=== PATIENT | female | born 1995 | race Caucasian/White ===

== ENCOUNTER 2018-08-10 12:35 | Inpatient (IN) | payer MEDICAID ==
[~2018-08-10] VITALS: Ht 157.5 cm; Wt 66.2 kg
[2018-08-10 13:51] VITALS: Ht 157.5 cm; Wt 66.2 kg
[2018-08-10 13:52] VITALS: BP 120/77; PULSE 77; RESP 18
[2018-08-10] MEDS ORDERED: METHYLERGONOVINE 0.2 MG INJ IM PRN (14:00)
[2018-08-10] MEDS ORDERED: BUTORPHANOL 2 MG INJ IV PRN (14:00)
[2018-08-10] MEDS ORDERED: OXYTOCIN 30 UNITS/LR 500 ML IV SCH ×2 (14:00→15:00)
[2018-08-10] MEDS ORDERED: OXYTOCIN 30 UNITS/LR 500 ML IV PRN (14:00)
[2018-08-10] MEDS ORDERED: CARBOPROST 250 MCG INJ IM PRN (14:00)
[2018-08-10] MEDS ORDERED: IBUPROFEN 600 MG TAB PO PRN (14:00)
[2018-08-10] MEDS ORDERED: LIDOCAINE 1% (MPF) 30 ML INJ INJ PRN (14:00)
[2018-08-10] MEDS ORDERED: MISOPROSTOL 200 MCG TAB PR PRN (14:00)
[2018-08-10] MEDS: LACTATED RINGER'S 1,000 ML IV SCH ×2 (14:13→15:37)
--- NOTE | 2018-08-10 22:11 | HP ---
Date/Time of Note Date/Time of Note DATE: 08/10/18 TIME: 22:05 OB - History Hx of Present Free Text/Dictation 22 years old 2 para was 0010 with single intrauterine at 39 weeks and 1 day with a VICKEY of 08/16/2018 complaining of uterine contractions. She states good movement. She denies nausea, vomiting, shortness of breath, chest pain, headache, visual changes, vaginal bleeding or LOF. Risk factors: 1. Elevated inhibin 2. Abnormal 1 hour GCT (137), she declined 3-hour GTT Chief Complaint: Uterine contractions Estimated Due Date: Aug 16, 2018 : 2 Para: 0 Spontaneous : 0 Therapeutic : 2 Care: Good Care Ultrasounds: Normal mid trimester US, Other Obstetrical Complications: None Medical Complications: None Past Family/Social History * Past Medical, Surgical, Family and Obstetric Histories reviewed from chart. Blood Type: O+ Rubella: immune RPR/VDRL: Negative GBS Status: Negative HBsAG: Negative OB Admission Exam Vital Signs Vital Signs Vital Signs Date Temp Pulse Resp B/P (MAP) Pulse Ox O2 O2 Flow FiO2 Time Delivery Rate 08/10/18 98.9 77 18 120/77 Room Air 13:52 (91) Physical Exam HEENT: WNL Heart: Rhythm Normal Lungs: Clear Abdomen: WNL Extremities: Normal Cervical Dilatation: 4cm Effacement: 75% Station: -2 Membranes: Intact Heart Rate: 140's Accelerations: Accelerations Present Decelerations: No Decelerations Varibility: Moderate Contractions on Admission: < 5 Minutes Apart Intensity: Moderate Last 72 hours Lab Results CBC & BMP 08/10/18 14:10 Hemoglobin A1C Test 08/10/18 14:10 Hemoglobin A1c 5.7 OB Assessment/Plan Other plan: 22 years old 2 para 00 2 0 with single intrauterine at 39 weeks and 1 day in labor - FHR: No sign of metabolic acidosis- Category I - Continuous EFM, toco - CBC, blood type and screen - Analgesia options with R/B/A discussed in detail with patient - Epidural per patient request - Please see the orders - O+/Rubella: Immune - GBS: Negative 2) 1 hour GCT was 137. She declined 3-hour GTT. Hemoglobin A1c is 5.7. Follow-up at 6-12 weeks after delivery Admission, procedures, expectations, risks and possible complications have been discussed in detail with the patient. Risk of vaginal delivery including but not limited to bleeding, infection, cervical laceration, placental retention, injury to fetus, blood transfusion, blood transfusion related infection, risk of anesthesia, adhesion, cervical laceration, episiotomy/laceration, possible delivery with risk of bleeding, infection, injury to other organs (bowel, bladder, ureter, vessels, nerves), injury to fetus, blood transfusion, blood transfusion related infection, risk of anesthesia, scar and hernia formation, needs for future , removal of uterus or any other indicated surgery discussed with the patient. She expressed understanding and repeats the risks. All of her questions were answered. She signed the informed consent. PHYSICIAN'S VERIFICATION OF INFORMED CONSENT The patient was counseled regarding the procedure, its indications, risks, potential complications and alternatives and any questions were answered. Consent was obtained. PLANNED PROCEDURE/TREATMENT: Vaginal delivery, episiotomy, repair of laceration possible delivery NIEVES NORMAN Aug 10, 2018 22:11
[2018-08-10] MEDS ORDERED: MINERAL OIL LIGHT 10 ML VIAL TOP PRN (23:00)
[2018-08-11] MEDS ORDERED: PREN-99 PO (01:18)
[2018-08-11] MEDS: LACTATED RINGER'S 1,000 ML IV SCH ×3 (01:19→10:25)
--- NOTE | 2018-08-11 01:56 | PREAC ---
Date/Time of Note Date/Time of Note DATE: 08/11/18 TIME: :55 Anesthesia Eval and Record Evaluation Time Pre-Procedure Interview DATE: 08/11/18 TIME: :55 Age 22 Sex female NPO: 8 hrs Preoperative diagnosis iup at term Planned procedure labor epidural Past Medical History Past Medical History: None Surgery & Anesthesia Issues No known issue Meds Anticoagulation: No Beta Shawn within 24 hr: No Reason Beta Shawn not given: Pt. not on B-Shawn Reported Medications Vit #76/Iron,Carb/FA (Pnv 29-1 Tablet) 1 Each Tablet, 1 EACH PO, TAB 08/11/18 Current Medications Lactated Ringer's 1,000 ml @ 125 mls/hr Q8H IV Last administered on 08/11/18at 01:19; Admin Dose 125 MLS/HR; Start 08/10/18 at 13:53 Butorphanol Tartrate (Stadol) 2 mg Q2H PRN IV .PAIN; Start 08/10/18 at 14:00 Lidocaine (Xylocaine 1% (Mpf)) 30 ml ONCE PRN INJ .EPISIOTOMY; Start 08/10/18 at 14:00 Oxytocin/Lactated Ringer's 500 ml @ 500 mls/hr ONCE POST IV ; Start 08/10/18 at 14:00 Oxytocin/Lactated Ringer's 500 ml @ 125 mls/hr POST IV ; Start 08/10/18 at 14:00 Ibuprofen (Motrin) 600 mg ONCE PRN PO .PAIN 1-5; Start 08/10/18 at 14:00 Oxytocin/Lactated Ringer's 500 ml @ 0 mls/hr ONCE PRN IV .VAGINAL BLEEDING; Start 08/10/18 at 14:00 Methylergonovine Maleate (Methergine) 0.2 mg ONCE PRN IM .VAGINAL BLEEDING; Start 08/10/18 at 14:00 Carboprost Tromethamine (Hemabate) 250 mcg ONCE PRN IM .VAGINAL BLEEDING; Start 08/10/18 at 14:00 Misoprostol (Cytotec) 1,000 mcg ONCE PRN MO .VAGINAL BLEEDING; Start 08/10/18 at 14:00 Oxytocin/Lactated Ringer's 500 ml @ 0 mls/hr Q0M IV Last administered on 08/10/18at 15:39; Admin Dose 1 MLS/HR; Start 08/10/18 at 15:00 Mineral Oil (Muri-Lube) PRN PRN TOP VAGINAL DELIVERY; Start 08/10/18 at 23:00 Meds reviewed: Yes Allergies Coded Allergies: No Known Allergy (Unverified , 08/11/18) Allergies Reviewed: Yes Labs/Studies Labs Reviewed: Reviewed by anesthesiologist Result Diagram: 08/10/18 1410 Laboratory Tests 08/10/18 14:10 Blood Bank Test 08/10/18 14:10 Antibody Screen NEGATIVE Blood Type O POSITIVE Rh Immune Globulin Candidate NO test: Positive Pre-procedure Exam Last vitals Vital Signs Date Temp Pulse Resp B/P (MAP) Pulse Ox O2 O2 Flow FiO2 Time Delivery Rate 08/10/18 98.9 77 18 120/77 Room Air 13:52 (91) Airway: Adequate mouth opening, Adequate thyromental dist Mallampati: Mallampati I Teeth: Normal Lung: Normal Heart: Normal ASA Physical Status ASA physical status: 2 Emergency: None Planned Anesthetic Neuraxial: Epidural Planned Pain Management Parenteral pain med Pre-operative Attestations Prior to commencing anesthesia and surgery, the patient was re-evaluated, there was verification of: *The patient's identity *The results of appropriate recent lab work and preoperative vital signs *The above evaluation not changing prior to induction *Anesthetic plan, risk benefits, alternative and complications discussed with patient/family; questions answered; patient/family understands, accepts and wishes to proceed. URBAN SWEENEY Aug 11, 2018 01:56
[2018-08-11] MEDS ORDERED: FENTAnyl 2MCG/ML-ROPIV 0.2% 100 ML ONE (01:57)
[2018-08-11] MEDS ORDERED: ONDANSETRON 4 MG INJ IV PRN ×2 (02:00→22:30)
[2018-08-11] MEDS ORDERED: DIPHENHYDRAMINE 50 MG INJ IV PRN ×2 (02:00→22:30)
[2018-08-11] MEDS ORDERED: NALOXONE (0.4 MG/ML) INJ IV PRN (02:00)
[2018-08-11] MEDS: FENTAnyl 2MCG/ML-ROPIV 0.2% 100 ML BAG EPI SCH ×2 (02:21→12:10)
--- NOTE | 2018-08-11 08:20 | PAC ---
Date/Time of Note Date/Time of Note DATE: 08/11/18 TIME: 08:20 Post-Anesthesia Notes Post-Anesthesia Note Last documented vital signs Vital Signs Date Temp Pulse Resp B/P (MAP) Pulse Ox O2 O2 Flow FiO2 Time Delivery Rate 08/10/18 98.9 77 18 120/77 Room Air 0820 (91) Activity: WNL Respiratory function: WNL Cardiovascular function: WNL Mental status: Baseline Pain reasonably controlled: Yes Hydration appropriate: Yes Nausea/Vomiting absent: Yes URBAN SWEENEY Aug 11, 2018 08:20
[2018-08-11] MEDS: OXYTOCIN 30 UNITS/LR 500 ML IV SCH ×2 (15:01→19:24)
--- NOTE | 2018-08-11 16:33 | LDN ---
Date/Time of Note Date/Time of Note DATE: 08/11/18 TIME: 16:30 Delivery Summary 22 years old 2 para was 0010 with single intrauterine at 39 weeks and 2 days delivered a viable male over 4 median episiotomy and left lateral vaginal laceration. Nose and mouth suctioned. Rest of body delivered. Placenta cord clamp and cut after stopping pulsation. Baby given to the nurse. Laceration repaired with 2-0 and 3-0 Vicryl. Patient tolerated procedure well Time of delivery 14:42 40 Weight 7 pounds 13 ounces Shamir 20 inches 8 at 1 minutes and 9 at 5 minutes EBL 300 ml Weeks of Gestation 39 weeks and 2 days Placenta Delivered: Spontaneously Meconium: none Episiotomy: Yes (Median) Indication for episiotomy Facilitate vaginal delivery Anesthesia type: Epidural Estimated blood loss: 300 Sponge & Needle done & correct: Yes All needle counts correct: Yes Any foreign bodies felt in the: No Infant Delivery Information Sex Infant Sex: male Apgars 1 Minute: 8 5 Minute: 9 10 Minute: 10 Suctioning Nose & mouth suctioned at paige: Yes Umbilical Cord Umbilical cord with: 3 Vessels Cord Blood was obtained: Yes Mother & Baby Disposition Disposition Mom & Baby to Maternity; Good: Yes NIEVES NORMAN Aug 11, 2018 16:33
[2018-08-11 22:15] VITALS: BP 111/71; PULSE 71; RESP 19
[2018-08-11] MEDS: DEXTROSE 5%-LR 1,000 ML IV SCH (22:27)
[2018-08-11] MEDS ORDERED: CARBOPROST 250 MCG INJ IM PRN (22:30)
[2018-08-11] MEDS ORDERED: ZOLPIDEM 5 MG TAB PO PRN (22:30)
[2018-08-11] MEDS ORDERED: OXYTOCIN 30 UNITS/LR 500 ML IV PRN (22:30)
[2018-08-11] MEDS ORDERED: DIBUCAINE 1% 30 GM OINT TOP PRN (22:30)
[2018-08-11] MEDS ORDERED: WITCH HAZEL/GLYCERIN PAD PR PRN (22:30)
[2018-08-11] MEDS ORDERED: METHYLERGONOVINE 0.2 MG INJ IM PRN (22:30)
[2018-08-11] MEDS ORDERED: MISOPROSTOL 200 MCG TAB PR PRN (22:30)
[2018-08-11] MEDS ORDERED: BENZOCAINE 20% 56 ML SPRAY TOP PRN (22:30)
[2018-08-11] MEDS ORDERED: ACETAMINOPHEN 325 MG TAB PO PRN (22:30)
[2018-08-11] MEDS: LACTATED RINGER'S 1,000 ML IV* SCH (23:38)
[2018-08-12] VITALS: BP 116/64; PULSE 73; RESP 20
[2018-08-12] MEDS: LANOLIN HPA 1 PKT TOP PRN (00:24)
[2018-08-12] MEDS ORDERED: HYDROCODONE/APAP (5/325) TAB PO PRN (02:00)
[2018-08-12 04:00] VITALS: BP 115/62; PULSE 76; RESP 19
[2018-08-12] MEDS: IBUPROFEN 600 MG TAB PO SCH ×3 (05:29→18:00)
[2018-08-12] MEDS: LACTATED RINGER'S 1,000 ML IV* SCH (06:27)
[2018-08-12] MEDS: DEXTROSE 5%-LR 1,000 ML IV SCH (06:27)
[2018-08-12 08:00] VITALS: BP 107/58; PULSE 62; RESP 18
--- NOTE | 2018-08-12 14:48 | PN ---
Date/Time of Note Date/Time of Note DATE: 08/12/18 TIME: 14:46 OB Subjective Subjective Subjective Breast-feeding. Denies any dizziness or lightheadedness. Denies any complaint. Ambulating. Reports mild cramps. OB Objective Objective Objective General appearance: Alert and oriented x4 does not appear to be in any acute distress Abdomen: Soft, nontender, fundus palpable below the umbilicus Extremities: No calf tenderness, no click no edema no cord palpable Breast: No evidence of mastitis or fissure VS - Last 72 Hours, by Label Date Temp Pulse Resp B/P (MAP) Pulse Ox O2 O2 Flow FiO2 Time Delivery Rate 08/12/18 98.3 62 18 107/58 Room Air 08:00 (74) 08/12/18 98.4 76 19 115/62 Room Air 04:00 (79) 08/12/18 98.2 73 20 116/64 Room Air 00:00 (81) 08/11/18 98.4 71 19 111/71 Room Air 22:15 (84) 08/10/18 98.9 77 18 120/77 Room Air 13:52 (91) Laboratory Tests Test 08/12/18 08:20 White Blood Count 16.8 #H Red Blood Count 3.10 #L Hemoglobin 8.5 #L Hematocrit 26.6 #L Mean Corpuscular Volume 85.8 Mean Corpuscular Hemoglobin 27.4 L Mean Corpuscular Hemoglobin Concent 32.0 Red Cell Distribution Width 14.8 H Platelet Count 138 #L Mean Platelet Volume 12.8 H Immature Granulocytes % 0.700 H Neutrophils % 72.6 Lymphocytes % 18.1 Monocytes % 7.8 Eosinophils % 0.5 Basophils % 0.3 Nucleated Red Blood Cells % 0.0 Immature Granulocytes # 0.110 H Neutrophils # 12.2 H Lymphocytes # 3.0 H Monocytes # 1.3 H Eosinophils # 0.1 Basophils # 0.1 Nucleated Red Blood Cells # 0.0 OB Assessment/Plan Other Assessment: Status post day #1 Anemia, asymptomatic, Mild leukocytosis, likely reactive, , asymptomatic, no evidence of infection Elevated 1 hour PG, refused 3-hour GTT. hemoglobin A1c 5.2 within normal limits Routine care Iron twice a day with stool softener Anticipate DC home tomorrow RAUL STAFFORD MD Aug 12, 2018 14:48
[2018-08-12] MEDS: DOCUSATE SODIUM 100 MG CAP PO SCH ×2 (15:00→21:22)
[2018-08-12 15:16] VITALS: BP 105/55; PULSE 68; RESP 17
[2018-08-12] MEDS: POLYSACCHARIDE IRON COMPLEX CAP PO SCH ×2 (17:44→21:22)
[2018-08-12] MEDS: SENNA/DOCUSATE NA (8.6MG/50MG) TAB PO PRN ×2 (17:44→17:45)
[2018-08-12 19:35] VITALS: BP 114/76; PULSE 65; RESP 18
[2018-08-13] MEDS: IBUPROFEN 600 MG TAB PO SCH ×3 (00:08→12:45)
[2018-08-13 04:05] VITALS: BP 109/70; PULSE 61; RESP 18
[2018-08-13 08:00] VITALS: BP 133/85; PULSE 74; RESP 20
[2018-08-13] MEDS ORDERED: MEASLES,MUMPS,RUBELLA VACCINE INJ SC* ONE (09:00)
[2018-08-13] MEDS ORDERED: DIPHTH/TET/ACEL PERTUSS (ADULT) 0.5 ML VIAL IM* ONE (09:00)
[2018-08-13] MEDS: DOCUSATE SODIUM 100 MG CAP PO SCH (10:13)
[2018-08-13] MEDS: LANOLIN HPA 1 PKT TOP PRN (10:13)
[2018-08-13] MEDS: POLYSACCHARIDE IRON COMPLEX CAP PO SCH (10:13)
--- NOTE | 2018-08-13 15:17 | DS ---
Date/Time of Note Date/Time of Note DATE: 08/13/18 TIME: 15:15 Obstetrical Discharge Record Final Diagnosis Final Diagnosis: Term delivered Vaginal Delivery Obstetrical Delivery: Spontaneous, Episiotomy, Repaired, Laceration, Repaired Complications Augmentation: No Induction: No Rupture of Membranes: No Condition on Discharge Physical Assessment Last Vitals: vss afebrile Bowel Movement: Yes Breast: Soft, non-tender Fundus: Firm Abdomen and Incision: n/a Episiotomy: healing ok Calf Tenderness: No Patient Condition: Stable FELISHA ALMARAZ MD Aug 13, 2018 15:17
--- NOTE | 2018-08-13 15:20 | PD.PPDC ---
WELFARE DIRECTOR Discharge Instruction Diagnosis [id number] Final Diagnosis: Iwwne9z s/p Condition [id number] Patient Condition: Iguwn4n Stable Diet [id number] Diet: Ohvnq8k Resume Regular Diet Activity/Restrictions [id number] Activity: Jqnhn3w May Shower [id number] Restrictions: Soaib9e No Lifting No Sexual Activity Nothing in the Vagina No [place] No Tampons, douche Follow-up Follow-up with Physician: 2, Week/Weeks Return to clinic for [id number] [employer] SPECIALIST Instructions: Wgpot5m Fever greater than 101 Chills Worsening abdominal pain Excessive Vaginal Bleeding More than 2 pads per hour Unable to tolerate diet [id number] OB Instructions: Apyyr3e Breast Tenderness Depression Blurried Vision Headache FELISHA ALMARAZ MD Aug 13, 2018 15:19
[2018-08-13 15:50] VITALS: BP 123/72; PULSE 74; RESP 18
--- NOTE | 2018-08-14 17:23 | DELSUM ---
Delivery Summary A-C Datetime Report Generated by CPN: 08/14/2018 17:23 DELIVERY PERSONNEL [employer] Buffer: [place], [place] MATERNAL INFORMATION Delivery Anesthesia: Epidural Medications in Delivery: pitocin Delivery QBL (ml): 300 Placenta Cultured: No Maternal Complications: None LABOR SUMMARY EDC: 08/16/2018 00:00 No. Babies in Womb: 1 Attempted: No Labor Anesthesia: Epidural LABOR INFORMATION Reason for Induction: Not Applicable Onset of Labor: 08/10/2018 00:00 Complete Dilatation: 08/11/2018 13:37 Oxytocin: Augmentation Group B Beta Strep: Negative Antibiotics # of Doses: 0 Steroids Given: None Reason Steroids Not Administered: Not Applicable MEMBRANES Membranes Rupture Method: Artificial Rupture of Membranes: 08/11/2018 10:19 Length of Rupture (hr): 4.38 Amniotic Fluid Color: Clear Amniotic Fluid Amount: Large Amniotic Fluid Odor: Normal STAGES OF LABOR Stage 1 hr: 37 Stage 1 min: 37 Stage 2 hr: 1 Stage 2 min: 5 Stage 3 hr: 0 Stage 3 min: 2 Total Time in Labor hr: 38 Total Time in Labor min: 44 VAGINAL DELIVERY Episiotomy: Median Laceration Extension: Third Degree Laceration Type: Perineal Laceration Repair: Yes Initial Vag Sponge Count: 10 Final Vag Sponge Count: 20 Initial Vag Sharps Count: 1 Final Vag Sharps Count: 4 Sponge Count Correct: Yes; Vaginal Sweep Performed Sharps Count Correct: Yes Count Comment: add 3 sharps 10 raytex added BABY A INFORMATION Delivery Date/Time: 08/11/2018 14:42 Method of Delivery: Vaginal Born in Route : No : N/A Forceps: N/A Vacuum Extraction: N/A Shoulder Dystocia : No SHOULDER DYSTOCIA BABY A Delivery Date/Time: 08/11/2018 14:42 PRESENTATION/POSITION BABY A Presentation: Cephalic Cephalic Presentation: Vertex Vertex Position: Left Occipital Anterior Breech Presentation: N/A PLACENTA INFORMATION BABY A Placenta Delivery Time : 08/11/2018 14:44 Placenta Method of Delivery: Spontaneous Placenta Status: Delivered SCORES BABY A Heart Rate 1 min: >100 bpm Resp Effort 1 min: Good Cry Reflex Irritability 1 min: Cough/Sneeze/Pulls Away Muscle Tone 1 min: Active Motion Color 1 min: Blue/Pale Resuscitation Effort 1 min: Tactile Stimulation SCORE 1 MIN: 8 Heart Rate 5 min: >100 bpm Resp Effort 5 min: Good Cry Reflex Irritability 5 min: Cough/Sneeze/Pulls Away Muscle Tone 5 min: Active Motion Color 5 min: Body Burr, Extremit Blue SCORE 5 MIN: 9 INFORMATION BABY A Gestational Age at Delivery: 39.2 Gestational Status: Full Term- 39- 40.6 Weeks Infant Outcome : Liveborn Infant Condition : Stable Infant Sex: Male IDENTIFICATION/MEDS BABY A ID Band Number: [id number] ID Band Location: Right Leg; Left Arm Sensor Applied: Yes Sensor Number: [id number] Sensor Location : Cord Clamp Vitamin K Given : Not Given Erythromycin Given: Not Given WEIGHT/LENGTH BABY A Birthweight (gm): 3555 Weight (lb): 7 Infant Weight (oz): 13 Infant Length (in): 20.00 Length (cm): 50.80 CORD INFORMATION BABY A No. Cord Vessels: 3 Nuchal Cord : N/A Cord Blood Taken: Yes Infant Suction: Mouth; Nose ASSESSMENT BABY A Infant Complications: None Physical Findings at Delivery: Within Normal Limits Infant Respirations: Appears Normal Blockers Skiver/ALS Called : No Infant Care By: SHERIE ARSHAD Transferred To: Remains with Mother
== END 2018-08-13 17:23 | disposition home or self-care (01) | DRG 806 ==
LOC: L-D 12:35 → PP1 08-11 22:24 → EDSTATUS 08-15 12:34
PROVIDERS: ADMIT Obstetrics & Gynecology; ATTEND Obstetrics & Gynecology
PROC: 4A1HXCZ Monitoring of Products of Conception, Cardiac Rate, External Approach (ICD-10-PCS; 2018-08-10)
PROC: 10E0XZZ Delivery of Products of Conception, External Approach (ICD-10-PCS; principal; 2018-08-11)
PROC: 0UQGXZZ Repair Vagina, External Approach (ICD-10-PCS; 2018-08-11)
PROC: 0W8NXZZ Division of Female Perineum, External Approach (ICD-10-PCS; 2018-08-11)
DX: O71.4 Obstetric high vaginal laceration alone (principal); O99.13 Other diseases of the blood and blood-forming organs and certain disorders involving the immune mechanism complicating the puerperium; Z37.0 Single live birth; O90.81 Anemia of the puerperium; D72.829 Elevated white blood cell count, unspecified; Z3A.39 39 weeks gestation of pregnancy
CPT/HCPCS: 76815; 83036; 85025; 85610; 85730; 86592; 86850; 86900; 86901; 87340; J2590; J3010; J7120; J7121